=== PATIENT | female | born 1990 ===

== ENCOUNTER 2018-04-08 09:35 | Inpatient (IN) ==
[2018-04-08] MEDS: Sod Chloride 0.9% Inj 1,000 ML IV.CONT SCH (18:18)
--- NOTE | 2018-04-08 18:54 | P.HPIM ---
History of Present Illness Primary Care Physician: UNKNOWN Chief Complaint: Abdominal pain History of Present Illness: The patient is a 28-year-old female with a past medical history significant for recent and who is still breast- feeding who is presenting to the hospital with abdominal pain. The patient presented to the emergency department a few days ago with the same abdominal pain and left AGAINST MEDICAL ADVICE as she had to take care of her family. The patient stated that her pain was located in the top of her belly and seemed to begin after eating something at [employer]. She said she felt nauseous and self-induced vomiting and felt better after that. She then noticed that her urine became dark and she went to the emergency department. She says that she came back to the hospital this time because her urine is still dark and she has noticed her stools have been white in color. She says her pain has resolved. She said she had mild discomfort with breakfast this morning. She is wondering when she can go home. Review of Systems Review of Systems: all other systems reviewed are negative [facility] Medical History Medical History No significant medical problems (Acute) Surgical History Surgical History H/O: section (Acute) Family History Family History Other Cancer Diabetes Social History Social History Substance History: No History of Abuse Second Hand Smoke Exposure: No Smoking Status: Never smoker How Often Do You Have a Drink Containing Alcohol: Never Medications and Allergies Allergies Allergy/AdvReac Type Severity Reaction Status Date / Time No Known Allergies Allergy Unverified 04/08/18 14:06 Active Medications: Active Medications Sodium Chloride (Ns Inj) 1,000 mls @ 100 mls/hr IV.CONT .Q10H KIN Last Admin: 04/08/18 18:18 Dose: 100 mls/hr Piperacillin/Tazobactam/Dextrose (Zosyn 4.5 Gm Premix) 4.5 gm in 100 mls @ 200 mls/hr IV.SIG Q6H KIN Ondansetron HCl (Zofran Inj) 4 mg IV.PUSH Q8H PRN PRN Reason: NAUSEA Physical Exam Vital signs: Vital Signs 04/08/18 17:13 Temperature 97.8 F Pulse Rate 68 Respiratory Rate 18 Blood Pressure 147/89 H Pulse Oximetry 99 Intake & Output 04/07/18 04/08/18 04/08/18 18:59 06:59 18:59 Weight 223.9 kg Other: Weight On Admission 223.9 kg Narrative: General: NAD HEENT: NC, AT Lungs: CTAB. No W/R/R Cardiac: RRR. No M/R/G Abdomen: Soft, NT, ND, no guarding Extremities: No edema Neuro: No gross deficits Caprini VTE Risk Assessment Caprini VTE Risk Assessment: No/Low Risk (score <= 1) Caprini Risk Assessment Model: Point Value = 1 Point Value = 2 Point Value = 3 Point Value = 5 Age 41-60 Minor surgery BMI > 25 kg/m2 Swollen legs Varicose veins or History of unexplained or recurrent spontaneous Oral contraceptives or hormone replacement Sepsis (< 1 month) Serious lung disease, including pneumonia (< 1 month) Abnormal pulmonary function Acute myocardial infarction Congestive heart failure (< 1 month) History of inflammatory bowel disease Medical patient at bed rest Age 61-74 Arthroscopic surgery Major open surgery (> 45 min) Laparoscopic surgery (> 45 min) Malignancy Confined to bed (> 72 hours) Immobilizing plaster cast Central venous access Age >= 75 History of VTE Family history of VTE Factor V Leiden Prothrombin [id number] Lupus anticoagulant Anticardiolipin antibodies Elevated serum homocysteine Heparin-induced thrombocytopenia Other congenital or acquired thrombophilia Stroke (< 1 month) Elective arthroplasty Hip, pelvis, or leg fracture Acute spinal cord injury (< 1 month) Prophylaxis Regimen: Total Risk Factor Score Risk Level Prophylaxis Regimen 0-1 Low Early ambulation 2 Moderate Order ONE of the following: *Sequential Compression Device (SCD) *Heparin 5000 units SQ BID 3-4 Higher Order ONE of the following medications: *Heparin 5000 units SQ TID *Enoxaparin/Lovenox 40 mg SQ daily (WT < 150 kg, CrCl > 30 mL/min) *Enoxaparin/Lovenox 30 mg SQ daily (WT < 150 kg, CrCl > 10-29 mL/min) *Enoxaparin/Lovenox 30 mg SQ BID (WT < 150 kg, CrCl > 30 mL/min) AND/OR *Sequential Compression Device (SCD) 5 or more Highest Order ONE of the following medications: *Heparin 5000 units SQ TID (Preferred with Epidurals) *Enoxaparin/Lovenox 40 mg SQ daily (WT < 150 kg, CrCl > 30 mL/min) *Enoxaparin/Lovenox 30 mg SQ daily (WT < 150 kg, CrCl > 10-29 mL/min) *Enoxaparin/Lovenox 30 mg SQ BID (WT < 150 kg, CrCl > 30 mL/min) AND *Sequential Compression Device (SCD) Assessment and Plan Plan Elevated LFTs Ultrasound showed: Mobile echogenic gallstones; Cholecystitis should be excluded clinically. LFTs have improved since the last ED visit. Pain has also improved. Surgery contacted by the ED. -MRCP per surgery. -trend LFTs. -start Zosyn. -NPO with IVFs. -GI consult pending. Recent C section The pt is . -outpt follow-up. PPx: Ambulation H&P: Quality VTE Deep Vein Thrombosis/Pulmonary Embolism Present on Admission: No
[2018-04-08] MEDS: Piperacil/Tazo 4.5 GM Premix 4.5 GM/100 ML BAG IV.SIG SCH (21:08)
[2018-04-08] MEDS ORDERED: Morphine Inj 4 MG/ML Vial IV.PUSH PRN (22:58)
--- NOTE | 2018-04-08 23:02 | P.OP ---
- Preoperative Diagnosis (1) Acute appendicitis - Postoperative Diagnosis (1) Acute appendicitis Procedure: lap appy Anesthesia: GETA Surgeon: Valeriy Stout MD Pathology: other (appy) Operation and Findings: inflamed appendix
--- NOTE | 2018-04-08 23:52 | MB ---
cc: Valeriy Stout MD DATE: 04/08/2018 CHIEF COMPLAINT: Abdominal pain, cholelithiasis, elevated bilirubin. SPEECH LANGUAGE PATHOLOGIST ASSISTANT: Stephen Evans DO HISTORY OF PRESENT ILLNESS: The patient is a 28-year-old female who presents with a recent 2 months ago. The patient noted acute onset of abdominal pain. The patient states the abdominal pain started Tuesday and continued to get worse. She characterized the pain as pressure in the right upper quadrant. The patient had initial evaluation including ultrasound at [facility]. The patient was noted to have recommendations for further evaluation and workup. The patient was noted to have an elevated bilirubin at this time; however, the patient was unable to stay and evidently left AMA. She came back due to continued discomfort in the right upper quadrant abdominal area and states she wanted further evaluation. She came to the [facility] with ultrasound finding of multiple gallstones in the gallbladder along with a bilirubin of 3.3, AST and ALT of 142 and 564 respectively and alkaline phosphatase of 287. WBC was normal at 5.7. The patient was decided to transfer to [place] for further definitive surgical management. Surgery was consulted. On my exam, the patient states the pain is still persistent and significant in the right upper quadrant. She states other than Tuesday, she has never had a painful episodes like this prior. She does have associated pain with meals and prompted her to come to the Emergency Department for a current evaluation. She does note she is continuing breast feeding and had an otherwise normal delivery. PAST MEDICAL HISTORY: Hypertension. PAST SURGICAL HISTORY: . SOCIAL HISTORY: Denies smoking, ETOH or IVDA. ALLERGIES: NO KNOWN DRUG ALLERGIES. MEDICATIONS: See EMR. FAMILY HISTORY: Grandparents with the grandmother and grandfather with diabetes. REVIEW OF SYSTEMS: GENERAL: Denies fever or chills. HEENT: Denies eye pain or ear pain. NECK: Denies swelling or pain. LUNGS: Denies cough or wheeze. HEART: Denies palpitations or chest pain. ABDOMEN: Complains of abdominal pressure and pain. Denies vomiting. GENITOURINARY: Denies hematuria. Does complain of dark urine and guero-colored stools. EXTREMITIES: Denies any numbness or pain. PSYCHIATRIC: Appropriate mood. Appropriate insight. PHYSICAL EXAMINATION: GENERAL: No acute distress. VITAL SIGNS: Temperature 97.8, pulse 68, respiration 18, blood pressure 147/89, saturation 99%. HEENT: Pupils equal, round and reactive. No scleral icterus. NECK: Supple. Trachea midline. LUNGS: Clear to auscultation bilaterally. HEART: S1, S2 regular. ABDOMEN: Soft. Positive tenderness to palpation in the right upper quadrant. No rebound. No guarding. EXTREMITIES: Warm and well perfused. NEUROLOGIC: GCS of 15 and 5/5 motor in all extremities. PSYCHIATRIC: Appropriate mood. Appropriate judgment. LABORATORY AND DIAGNOSTIC DATA: WBC 5.7, hemoglobin 13.4, hematocrit 40.4, platelets 271. Sodium 143, potassium 3.8, chloride 110, CO2 is 27, BUN is 10, creatinine 0.9, AST 142, ALT 564. Total bilirubin is 3.3. Alkaline phosphatase is 287. Lipase is 91. Ultrasound reviewed by myself showing multiple gallstones within the gallbladder. ASSESSMENT: The patient is a 28-year-old female who presents with acute onset of pressure and abdominal pain, right upper quadrant, consistent with symptomatic cholelithiasis, concern for choledocholithiasis, total bilirubin elevation. The patient is recent . Complained of guero-colored stool and dark urine. PLAN: After full workup, the patient with the above-noted issues. At this point, I recommend a consultation with gastroenterology after obtaining a MRCP. Need to further delineate if the patient does indeed have choledocholithiasis. Discussed with the patient in detail regarding if choledocholithiasis, then gastroenterology would likely do ERCP for stone removal of common bile duct. However, if this is negative, the patient has likely passed a gallstone and we could consider proceeding with operative intervention. Regardless, discussed with the patient regarding likely need for surgical intervention regarding cholecystectomy as the patient does have multiple gallstones and evidence of concern for choledocholithiasis. The patient needs to be antibiotics, IV fluids, pain control. The patient can have clear liquid diet. Consideration for n.p.o. after midnight until, again, a scan has been obtained and gastroenterology has made decisions regarding further workup and evaluation. Repeat labs in a.m. Will continue to follow. Thank you for this consultation. MD OMAR Linder/carlos , 10:10 PM , 10:23 PM
[2018-04-09] MEDS: Piperacil/Tazo 4.5 GM Premix 4.5 GM/100 ML BAG IV.SIG SCH ×4 (03:15→20:51)
[2018-04-09] MEDS: Sod Chloride 0.9% Inj 1,000 ML IV.CONT SCH ×2 (03:16→15:26)
--- NOTE | 2018-04-09 08:44 | MR ---
EXAM DATE: 04/09/2018 8:32 AM EST AGE/SEX: 28 years / Female INDICATIONS: Cholelithiasis. Abdominal pain. Increased bilirubin. CLINICAL DATA: This is the patient's initial encounter. Patient reports that signs and symptoms have been present for 3 days and indicates a pain score of 4/10. MEDICAL/SURGICAL HISTORY: Hypertension. section. COMPARISON: DL, CT ABDOMEN & PELVIS W CONTRAST, 04/05/2018. . TECHNIQUE: Multiplanar, multisequence images of the abdomen were obtained without contrast including dedicated cholangiographic images. FINDINGS: Multiple small gallstones are evident. There are 2 filling defects identified in a prominent common d uct seen best on series 3 image 20. There is no intrahepatic biliary duct dilatation Pancreas appears normal Spleen and kidneys are unremarkable. CONCLUSION: 1. Multiple small gallstones present 2. Mildly prominent common duct with at least 2 filling defects evident suggesting choledocholithias is Electronically signed by: Israel Bhakta MD Board Certified Radiologist 04/09/2018 8:43 AM EST
[2018-04-09 08:46] LABS: Albumin 3.1 g/dL (3.4-5.0); Anion Gap 11 meq/L (5-15); Aspartate Aminotransferase 125 U/L (15-37); Blood Urea Nitrogen 10 mg/dL (7-18); Calcium 9.1 mg/dL (8.5-10.1); Carbon Dioxide 23.7 meq/L (21.0-32.0); Chloride 109 meq/L (98-107); Glomerular Filtration Rate 86 mL/min (>89); Glucose,Random 58 mg/dL (74-106); Potassium 3.7 meq/L (3.5-5.1); Sodium 144 meq/L (136-145)
[2018-04-09 08:47] LABS: Alanine Aminotransferase 489 U/L (10-53)
[2018-04-09 08:50] LABS: Alkaline Phosphatase 263 U/L (45-117); Total Protein 6.9 g/dL (6.4-8.2)
--- NOTE | 2018-04-09 11:55 | P.PNIM ---
Subjective Interval history: Patient seen and examined this morning. Status post MRCP. Afebrile vital signs stable. Reports that she is doing well at this time. Has no major complaints or issues. States that her symptoms are improving. She is hopeful to get out of here soon. Still awaiting final recommendations from gastroenterology and general surgery. Physical Exam Vital signs: Vital Signs 04/08/18 17:13 04/08/18 20:00 04/09/18 00:00 Temperature 97.8 F 97.3 F L 97.2 F L Pulse Rate 68 67 62 Respiratory Rate 18 16 18 Blood Pressure 147/89 H 155/83 H 141/77 H Pulse Oximetry 99 98 98 04/09/18 04:00 04/09/18 09:30 Temperature 97.4 F L 97.5 F L Pulse Rate 57 L 100 H Respiratory Rate 18 18 Blood Pressure 123/89 142/86 H Pulse Oximetry 98 100 Intake & Output 04/08/18 04/09/18 04/09/18 18:59 06:59 18:59 Intake Total 1196 / 1196 100 / 100 Balance 1196 / 1196 100 / 100 Weight 223.9 kg 101 kg Intake: IV 1196 / 1196 100 / 100 NS Inj 1,000 ML @ 100 mls/hr IV 996 / 996 .CONT .Q10H KIN Rx#:[id number] Zosyn 4.5 GM Premix 4.5 gm In 200 / 200 100 / 100 100 ml @ 200 mls/hr IV.SIG Q6H KIN Rx#:[id number] Other: # Voids 1 Date of Last Bowel Movement 04/08/18 04/08/18 04/08/18 Weight On Admission 223.9 kg Narrative: GEN: Well-developed, well-nourished patient. No acute distress. CV: Regular rate and rhythm without obvious murmurs LUNGS: Clear to auscultation bilaterally. Normal respiratory effort. No wheezes , rales, rhonchi. GI: Soft, nontender, nondistended. No palpable masses. Bowel sounds WNL. EXT: No edema. NEURO/PSYCH: Afocal. Awake, alert, and oriented x3. Appropriate insight and judgment. Results - Labs CBC & Chem 7: 04/09/18 05:53 Laboratory Results - last 24 hr 04/09/18 05:53 Sodium 144 Potassium 3.7 Chloride 109 H Carbon Dioxide 23.7 Anion Gap 11 BUN 10 Creatinine 0.80 Estimated GFR 86 L Random Glucose 58 L Calcium 9.1 Total Bilirubin 4.1 H AST 125 H ALT 489 H Alkaline Phosphatase 263 H Total Protein 6.9 Albumin 3.1 L - Imaging Impressions Cholangiopancreatography MRI 04/09/18 00:00 CONCLUSION: 1. Multiple small gallstones present 2. Mildly prominent common duct with at least 2 filling defects evident suggesting choledocholithiasis Assessment and Plan - Assessment (1) Choledocholithiasis Code(s): K80.50 - Calculus of bile duct without cholangitis or cholecystitis without obstruction Status: Acute - Plan This a 28-year-old female with choledocholithiasis 1. Choledocholithiasis -Status post MRCP showing choledocholithiasis -Pain is well controlled this time, continue pain medications as needed -No nausea vomiting at this time, continue antiemetics as needed -General surgery consulted, recommendations appreciated -Gastroenterology consulted, recommendations appreciated N.p.o. at this time for possible surgical procedure DVT prophylaxis with SCDs Monitor electrolytes Code Status: Full code Discharge Planning: Pending recommendations from gastroenterology and general surgery
--- NOTE | 2018-04-09 13:33 | P.CONGI ---
History of Present Illness Consult date: 04/09/18 Requesting physician: Mauro Arora Consult reason: choledocholithiasis Chief complaint: Possible gall bladder surgery History of Present Illness: 28-year-old female status post 2 months ago developed acute worsening right upper quadrant pain earlier this week. Ultrasound at [place] [facility] positive for gallstones. Elevated bilirubin of 3.3, AST 142, ALT 564 and alk phos 287. Patient initially declined further workup as she is still breast-feeding and wanted to be able to care for her infant. She return to the ER when pain persisted, she developed dark urine and pale colored stool. She reports nausea but no vomiting. Pain is worse after eating. Denies diarrhea or constipation no unexplained weight loss. MRCP was done this morning to evaluate suspected choledocholithiasis mildly prominent common bile duct was noted with at least 2 filling defects suggestive for choledocholithiasis. Bilirubin now elevated to 4.1, AST 125, ALT 489, alk phos 263. Surgery is following and has discussed with the patient the likely need for surgical intervention. We are consulted for consideration of ERCP for CBD stone removal prior to cholecystectomy. <Jeanna Raymundo - Last Filed: 04/09/18 13:34> PMFSH - History History Provided By: Patient - Medical History Medical History: Medical History (Last Reviewed 04/08/18 @ 18:52 by Stephen Evans DO) No significant medical problems - Surgical History Surgical History: Surgical History (Last Reviewed 04/08/18 @ 18:52 by Stephen Evans DO) H/O: section - Family History Family History: Family History (Last Reviewed 04/08/18 @ 18:52 by Stephen Evans DO) Other Cancer Diabetes - Tobacco History Second Hand Smoke Exposure: No Smoking Status: Never smoker - Alcohol History How Often Do You Have a Drink Containing Alcohol: Never - Substance Use History Substance History: No History of Abuse <Jeanna Raymundo - Last Filed: 04/09/18 13:34> - Medical History Medical History: Medical History (Last Reviewed 04/08/18 @ 18:52 by Stephen Evans DO) No significant medical problems - Surgical History Surgical History: Surgical History (Last Reviewed 04/08/18 @ 18:52 by Stephen Evans DO) H/O: section - Family History Family History: Family History (Last Reviewed 04/08/18 @ 18:52 by Stephen Evans DO) Other Cancer Diabetes <Cb Aviles E - Last Filed: 04/09/18 20:53> Medications and Allergies Active Medications: Active Medications Sodium Chloride (Ns Inj) 1,000 mls @ 100 mls/hr IV.CONT .Q10H KIN Last Admin: 04/09/18 03:16 Dose: 100 mls/hr Piperacillin/Tazobactam/Dextrose (Zosyn 4.5 Gm Premix) 4.5 gm in 100 mls @ 200 mls/hr IV.SIG Q6H KIN Last Infusion: 04/09/18 08:38 Dose: Infused Morphine Sulfate (Morphine Inj) 2 mg IV.PUSH Q3H PRN PRN Reason: pain > 3 Ondansetron HCl (Zofran Inj) 4 mg IV.PUSH Q8H PRN PRN Reason: NAUSEA <Jeanna Raymundo C - Last Filed: 04/09/18 13:34> Active Medications: Active Medications Sodium Chloride (Ns Inj) 1,000 mls @ 100 mls/hr IV.CONT .Q10H KIN Last Admin: 04/09/18 15:26 Dose: 100 mls/hr Piperacillin/Tazobactam/Dextrose (Zosyn 4.5 Gm Premix) 4.5 gm in 100 mls @ 200 mls/hr IV.SIG Q6H KIN Last Admin: 04/09/18 20:51 Dose: 200 mls/hr Morphine Sulfate (Morphine Inj) 2 mg IV.PUSH Q3H PRN PRN Reason: pain > 3 Ondansetron HCl (Zofran Inj) 4 mg IV.PUSH Q8H PRN PRN Reason: NAUSEA <bC Aviles E - Last Filed: 04/09/18 20:53> Allergies Allergy/AdvReac Type Severity Reaction Status Date / Time No Known Allergies Allergy Unverified 04/08/18 14:06 Exam Vital signs: Vital Signs 04/08/18 17:13 04/08/18 20:00 04/09/18 00:00 Temperature 97.8 F 97.3 F L 97.2 F L Pulse Rate 68 67 62 Respiratory Rate 18 16 18 Blood Pressure 147/89 H 155/83 H 141/77 H Pulse Oximetry 99 98 98 04/09/18 04:00 04/09/18 09:30 Temperature 97.4 F L 97.5 F L Pulse Rate 57 L 100 H Respiratory Rate 18 18 Blood Pressure 123/89 142/86 H Pulse Oximetry 98 100 Intake & Output 04/08/18 04/09/18 04/09/18 18:59 06:59 18:59 Intake Total 1196 / 1196 100 / 100 Balance 1196 / 1196 100 / 100 Weight 223.9 kg 101 kg Intake: IV 1196 / 1196 100 / 100 NS Inj 1,000 ML @ 100 mls/hr IV 996 / 996 .CONT .Q10H KIN Rx#:[id number] Zosyn 4.5 GM Premix 4.5 gm In 200 / 200 100 / 100 100 ml @ 200 mls/hr IV.SIG Q6H KIN Rx#:[id number] Other: # Voids 1 Date of Last Bowel Movement 04/08/18 04/08/18 04/08/18 Weight On Admission 223.9 kg <Jeanna Raymundo - Last Filed: 04/09/18 13:34> Vital signs: Vital Signs 04/09/18 00:00 04/09/18 04:00 04/09/18 09:30 Temperature 97.2 F L 97.4 F L 97.5 F L Pulse Rate 62 57 L 100 H Respiratory Rate 18 18 18 Blood Pressure 141/77 H 123/89 142/86 H Pulse Oximetry 98 98 100 04/09/18 12:00 04/09/18 16:00 Temperature 97.3 F L 97.5 F L Pulse Rate 84 69 Respiratory Rate 20 19 Blood Pressure 145/70 H 137/67 Pulse Oximetry 97 99 Intake & Output 04/09/18 04/09/18 04/10/18 06:59 18:59 06:59 Intake Total 1196 / 1196 1200 / 1200 Balance 1196 / 1196 1200 / 1200 Weight 101 kg Intake: IV 1196 / 1196 1200 / 1200 NS Inj 1,000 ML @ 100 mls/hr IV 996 / 996 1000 / 1000 .CONT .Q10H KIN Rx#:[id number] Zosyn 4.5 GM Premix 4.5 gm In 200 / 200 200 / 200 100 ml @ 200 mls/hr IV.SIG Q6H KIN Rx#:[id number] Other: # Voids 1 3 Date of Last Bowel Movement 04/08/18 04/08/18 <Cb Aviles - Last Filed: 04/09/18 20:53> Results - Labs CBC & Chem 7: 04/09/18 05:53 Labs: Laboratory Results - last 24 hr 04/09/18 05:53 Sodium 144 Potassium 3.7 Chloride 109 H Carbon Dioxide 23.7 Anion Gap 11 BUN 10 Creatinine 0.80 Estimated GFR 86 L Random Glucose 58 L Calcium 9.1 Total Bilirubin 4.1 H AST 125 H ALT 489 H Alkaline Phosphatase 263 H Total Protein 6.9 Albumin 3.1 L - Imaging Impressions Cholangiopancreatography MRI 04/09/18 00:00 CONCLUSION: 1. Multiple small gallstones present 2. Mildly prominent common duct with at least 2 filling defects evident suggesting choledocholithiasis <Jeanna Raymundo - Last Filed: 04/09/18 13:34> - Labs CBC & Chem 7: 04/09/18 05:53 Labs: Laboratory Results - last 24 hr 04/09/18 05:53 Sodium 144 Potassium 3.7 Chloride 109 H Carbon Dioxide 23.7 Anion Gap 11 BUN 10 Creatinine 0.80 Estimated GFR 86 L Random Glucose 58 L Calcium 9.1 Total Bilirubin 4.1 H AST 125 H ALT 489 H Alkaline Phosphatase 263 H Total Protein 6.9 Albumin 3.1 L - Imaging Impressions Cholangiopancreatography MRI 04/09/18 00:00 CONCLUSION: 1. Multiple small gallstones present 2. Mildly prominent common duct with at least 2 filling defects evident suggesting choledocholithiasis <Cb Aviles - Last Filed: 04/09/18 20:53> Assessment and Plan (1) Choledocholithiasis Status: Acute Code(s): K80.50 - Calculus of bile duct without cholangitis or cholecystitis without obstruction - Plan Symptomatic cholelithiasis with choledocholithiasis and total bilirubin elevation. 1. Continue antibiotics, IV fluids and pain control. 2. Clear liquid diet 3 n.p.o. after midnight 4. Plan for ERCP tomorrow. The patient has been seen by myself and Dr. Aviles and this note is written on his behalf Jeanna Raymundo PA-C [phone] - Attending Attestation Dr. Aviles <Jeanna Raymundo - Last Filed: 04/09/18 13:34> (1) Choledocholithiasis Status: Acute Code(s): K80.50 - Calculus of bile duct without cholangitis or cholecystitis without obstruction - Attending Attestation Patient seen and examined Agree with above Continue with current supportive care Monitor labs Plan for ERCP tomorrow <Cb Aviles E - Last Filed: 04/09/18 20:53>
--- NOTE | 2018-04-09 15:00 | P.PNGS ---
Subjective Patient reports: feels better Interval history: DAILY PROGRESS NOTE FOR SURGICAL ATTENDING, DR. LOPEZ WATTS Sitting up in bed breast-feeding her child Minimal lower abdominal discomfort She tells me she is planning having a procedure tomorrow to remove stones from her tube Physical Exam Vital signs: Vital Signs 04/08/18 17:13 04/08/18 20:00 04/09/18 00:00 Temperature 97.8 F 97.3 F L 97.2 F L Pulse Rate 68 67 62 Respiratory Rate 18 16 18 Blood Pressure 147/89 H 155/83 H 141/77 H Pulse Oximetry 99 98 98 04/09/18 04:00 04/09/18 09:30 04/09/18 12:00 Temperature 97.4 F L 97.5 F L 97.3 F L Pulse Rate 57 L 100 H 84 Respiratory Rate 18 18 20 Blood Pressure 123/89 142/86 H 145/70 H Pulse Oximetry 98 100 97 Intake & Output 04/08/18 04/09/18 04/09/18 18:59 06:59 18:59 Intake Total 1196 / 1196 100 / 100 Balance 1196 / 1196 100 / 100 Weight 223.9 kg 101 kg Intake: IV 1196 / 1196 100 / 100 NS Inj 1,000 ML @ 100 mls/hr IV 996 / 996 .CONT .Q10H [facility] Rx#:[id number] Zosyn 4.5 GM Premix 4.5 gm In 200 / 200 100 / 100 100 ml @ 200 mls/hr IV.SIG Q6H [facility] Rx#:[id number] Other: # Voids 1 Date of Last Bowel Movement 04/08/18 04/08/18 04/08/18 Weight On Admission 223.9 kg Results - Labs 04/09/18 05:53 Laboratory Results - last 24 hr 04/09/18 05:53 Sodium 144 Potassium 3.7 Chloride 109 H Carbon Dioxide 23.7 Anion Gap 11 BUN 10 Creatinine 0.80 Estimated GFR 86 L Random Glucose 58 L Calcium 9.1 Total Bilirubin 4.1 H AST 125 H ALT 489 H Alkaline Phosphatase 263 H Total Protein 6.9 Albumin 3.1 L - Imaging Imaging: ITS Impressions Cholangiopancreatography MRI 04/09/18 00:00 CONCLUSION: 1. Multiple small gallstones present 2. Mildly prominent common duct with at least 2 filling defects evident suggesting choledocholithiasis Additional studies: MRCP reviewed Assessment and Plan - Assessment (1) Choledocholithiasis Code(s): K80.50 - Calculus of bile duct without cholangitis or cholecystitis without obstruction Status: Acute (2) Gallstones Code(s): K80.20 - Calculus of gallbladder without cholecystitis without obstruction Status: Acute (3) Elevated liver enzymes Code(s): R74.8 - Abnormal levels of other serum enzymes Status: Acute - Plan 28-year-old female who is 2 months with gallstones and choledocholithiasis GI following planning ERCP tomorrow She wanted to know she can go home and then schedule laparoscopic cholecystectomy with Dr. Stout in the future I told her and her family to discuss with Dr. Stout after her ERCP if that is an option - Attending Attestation NOTE FOR SURGICAL ATTENDING, DR. LOPEZ WATTS I attest that I had a [id number] encounter with the patient on the same day, and personally performed and documented my assessment and findings in the medical record. The following services were provided during this hospital visit: Chart data review, vital sign assessments/reviewing monitor data Review of consultations notes if present. Medication orders/review and/or management Ordering and/or reviewing lab tests Ordering and/or interpreting/reviewing x-rays and/or diagnostic studies Care of the patient and discussion of the patient with the care team Documentation time To help prompt me to consider important information that might be impacting today's encounter and assessment, Information from prior notes written by myself or my colleagues may have been "brought forward/copy and pasted" into today's note.
[2018-04-09] MEDS ORDERED: Chlorhexidine Gluconate 2% 1 Pack (2 Cloths) TOPICAL ONE (22:05)
[2018-04-09] MEDS ORDERED: Sodium Chlor 0.9% Inj 500 ML IV.SIG SCH (23:00)
[2018-04-10] MEDS: Sod Chloride 0.9% Inj 1,000 ML IV.CONT SCH ×3 (01:03→22:29)
[2018-04-10] MEDS: Piperacil/Tazo 4.5 GM Premix 4.5 GM/100 ML BAG IV.SIG SCH ×4 (02:44→21:44)
[2018-04-10] MEDS ORDERED: Succinylcholine Inj 100 MG/5 ML Syringe IV.PUSH ONE (09:27)
[2018-04-10] MEDS ORDERED: Lidocaine PF 1% Inj 5 ML Syringe OTHER ONE (09:27)
[2018-04-10] MEDS ORDERED: Sugammadex Inj 200 MG/2 ML Vial IV.PUSH ONE (10:26)
--- NOTE | 2018-04-10 10:59 | GIPROC ---
[facility] [address] [facility]. [facility] [place], [address] ERCP PROCEDURE REPORT EXAM DATE: 04/10/2018 PATIENT NAME: Светлана Boyer MR #: [id number] BIRTHDATE: 1990 ATTENDING: Mo Yuan MD ORDER #: [id number] GEOTHERMAL SHEET METAL WORKER: Tri Westfall and Khadra Wayne STATUS: inpatient INDICATIONS: The patient is a 28 yr old female here for an ERCP due to GB ,CBD stones, abnormal abdominal CT, abdominal pain of suspected biliary origin, and abnormal liver function test PROCEDURE PERFORMED: ERCP, Level 3 MEDICATIONS: Per Anesthesia and None. CONSENT: The patient understands the risks and benefits of the procedure and understands that these risks include, but are not limited to: sedation, allergic reaction, infection, perforation and/or bleeding. Alternative means of evaluation and treatment include, among others: physical exam, x-rays, and/or surgical intervention. The patient elects to proceed with this endoscopic procedure. medical equipment was checked for proper function. Hand hygiene and appropriate measures for infection prevention was taken. After the risks, benefits and alternatives of the procedure were thoroughly explained, Informed was verified, confirmed and timeout was successfully executed by the treatment team. With the patient in left supine position, medications were administered intravenously.The Pentax [id number] was passed from the mouth into the esophagus and further advanced from the esophagus into the stomach. From stomach scope was directed to the second portion of the duodenum. Major papilla was enlarged, deformed.It aligned with the duodenoscope. The scope position was confirmed fluoroscopically. Rest of the findings/therapeutics are given below. The scope was then completely withdrawn from the patient and the procedure completed. The pulse, BP, and O2 saturation were monitored and documented by the physician and the nursing staff throughout the entire procedure. The patient was cared for as planned according to standard protocol. The patient was then discharged to recovery in stable condition and with appropriate post procedure care. The CBD wsa selectively cannulated with sphincterotome. GW advanced to IHD. Contrast injected. CBD,CHD dilted 13-15 mm. Bilary sphincterotomy done . 13-15 mmballoon used to extract 2 X 5 mm stone from CBD ADVERSE EVENT: There were no complications. IMPRESSIONS 1. CBD stone ,s/p removal with extraction balloon 2. s/p ES RECOMMENDATIONS: 1. Cholecystectomy 2. Antibiotics REPEAT EXAM: Return as needed for ERCP Mo Yuan MD eSigned: Mo Yuan MD 04/10/2018 10:58 AM cc: PATIENT NAME: Merlin Светлана Shelton MR#: [id number]
[2018-04-10] MEDS ORDERED: Iohexol 350 MG/ML 50 ML Vial (for Rad Diag) PO ONE (11:00)
[2018-04-10] MEDS ORDERED: Iohexol 350 MG/ML 50 ML Vial (for Rad Diag) ONE (11:04)
--- NOTE | 2018-04-10 11:53 | XR ---
EXAM DATE: 04/10/2018 11:40 AM EST AGE/SEX: 28 years / Female INDICATIONS: Respiratory status, possible infiltrate. CLINICAL DATA: This is the patient's initial encounter. Patient reports that signs and symptoms have been present for 1 day and indicates a pain score of 0/10. MEDICAL/SURGICAL HISTORY: . Hypertension. section. . COMPARISON: No prior exams available for comparison. FINDINGS: A single AP view of the chest demonstrates the lungs to be symmetrically aerated without evidence of mass, infiltrate or effusion. The cardiomediastinal contours are unremarkable. Osseous structures a re intact. CONCLUSION: Negative for acute process Electronically signed by: Israel Bhakta MD Board Certified Radiologist 04/10/2018 11:52 AM EST
--- NOTE | 2018-04-10 11:54 | FL ---
EXAM DATE: 04/10/2018 11:50 AM EST AGE/SEX: 28 years / Female INDICATIONS: Obstruction, removal on stones and balloon sweep. CLINICAL DATA: This is the patient's initial encounter. Patient reports that signs and symptoms have been present for 1 day and indicates a pain score of Nonresponsive. MEDICAL/SURGICAL HISTORY: Non-responsive. Non-responsive. COMPARISON: No prior exams available for comparison. FLUORO TIME: 305.3 IMAGE COUNT: 4 RADIATION DOSE: 286.263 DAP ; Patient motion FINDINGS: An ERCP was performed by the ordering physician. The images demonstrate a dilated common bile duct. See the report by the die cutter apprentice for a complete report. CONCLUSION: ERCP by die cutter apprentice as above. Electronically signed by: Oscar Dejesus MD Board Certified Radiologist 04/10/2018 11:53 AM EST
--- NOTE | 2018-04-10 16:15 | P.PNGS ---
Subjective Interval history: Resting in bed Physical Exam Vital signs: Vital Signs 04/09/18 19:18 04/10/18 00:16 04/10/18 03:52 Temperature 97.2 F L 98 F 97.3 F L Pulse Rate 75 81 66 Respiratory Rate 16 16 18 Blood Pressure 141/87 H 130/71 133/74 Pulse Oximetry 99 98 98 04/10/18 06:00 04/10/18 08:00 04/10/18 10:49 Temperature 97.3 F L 97.6 F 96.7 F L Pulse Rate 66 65 96 H Respiratory Rate 18 17 20 Blood Pressure 133/74 146/82 H 120/65 Pulse Oximetry 98 99 93 L 04/10/18 11:00 04/10/18 11:15 04/10/18 12:00 Temperature 97.4 F L 97.2 F L Pulse Rate 80 91 H 73 Respiratory Rate 16 25 H 17 Blood Pressure 117/72 118/72 141/78 H Pulse Oximetry 97 98 99 Intake & Output 04/09/18 04/10/18 04/10/18 18:59 06:59 18:59 Intake Total 1200 / 1200 1820 / 1820 2200 / 2200 Balance 1200 / 1200 1820 / 1820 2200 / 2200 Weight 102.4 kg Intake: IV 1200 / 1200 1100 / 1100 1200 / 1200 NS Inj 1,000 ML @ 100 mls/hr IV 1000 / 1000 900 / 900 1000 / 1000 .CONT .Q10H [facility] Rx#:[id number] Zosyn 4.5 GM Premix 4.5 gm In 200 / 200 200 / 200 200 / 200 100 ml @ 200 mls/hr IV.SIG Q6H [facility] Rx#:[id number] Oral 720 / 720 Anesthesia Amount 1000 / 1000 Other: # Voids 3 3 Date of Last Bowel Movement 04/08/18 04/10/18 04/09/18 # Bowel Movements 2 Narrative: Alert and awake Abd: soft; minimally tender Results - Labs 04/09/18 05:53 Laboratory Results - last 24 hr 04/09/18 05:53 Beta HCG, Quant Less than 1 - Imaging Imaging: ITS Impressions Cholangiopancreatography MRI 04/09/18 00:00 CONCLUSION: 1. Multiple small gallstones present 2. Mildly prominent common duct with at least 2 filling defects evident suggesting choledocholithiasis GI Procedure 04/10/18 00:00 CONCLUSION: ERCP by pin drafter operator as above. Chest X-Ray 04/10/18 10:51 CONCLUSION: Negative for acute process Assessment and Plan - Assessment (1) Choledocholithiasis Code(s): K80.50 - Calculus of bile duct without cholangitis or cholecystitis without obstruction Status: Acute Plan: 28 year old female with choledocholithiasis -s/p ERCP today -Plan for lap lam tomorrow -NPO after MN -Obtain consents -Procedure explained in detail -Dr. Saenz also at the bedside (2) Gallstones Code(s): K80.20 - Calculus of gallbladder without cholecystitis without obstruction Status: Acute (3) Elevated liver enzymes Code(s): R74.8 - Abnormal levels of other serum enzymes Status: Acute
--- NOTE | 2018-04-10 16:48 | P.PNIM ---
Subjective Interval history: Follow-up for choledocholithiasis. Patient is currently doing well. No nausea or vomiting. No fever or chills. She underwent ERCP with CBD stone status post removal with extraction balloon. GI recommended cholecystectomy. Physical Exam Vital signs: Vital Signs 04/09/18 19:18 04/10/18 00:16 04/10/18 03:52 Temperature 97.2 F L 98 F 97.3 F L Pulse Rate 75 81 66 Respiratory Rate 16 16 18 Blood Pressure 141/87 H 130/71 133/74 Pulse Oximetry 99 98 98 04/10/18 06:00 04/10/18 08:00 04/10/18 10:49 Temperature 97.3 F L 97.6 F 96.7 F L Pulse Rate 66 65 96 H Respiratory Rate 18 17 20 Blood Pressure 133/74 146/82 H 120/65 Pulse Oximetry 98 99 93 L 04/10/18 11:00 04/10/18 11:15 04/10/18 12:00 Temperature 97.4 F L 97.2 F L Pulse Rate 80 91 H 73 Respiratory Rate 16 25 H 17 Blood Pressure 117/72 118/72 141/78 H Pulse Oximetry 97 98 99 Intake & Output 04/09/18 04/10/18 04/10/18 18:59 06:59 18:59 Intake Total 1200 / 1200 1820 / 1820 2200 / 2200 Balance 1200 / 1200 1820 / 1820 2200 / 2200 Weight 102.4 kg Intake: IV 1200 / 1200 1100 / 1100 1200 / 1200 NS Inj 1,000 ML @ 100 mls/hr IV 1000 / 1000 900 / 900 1000 / 1000 .CONT .Q10H [facility] Rx#:[id number] Zosyn 4.5 GM Premix 4.5 gm In 200 / 200 200 / 200 200 / 200 100 ml @ 200 mls/hr IV.SIG Q6H [facility] Rx#:[id number] Oral 720 / 720 Anesthesia Amount 1000 / 1000 Other: # Voids 3 3 Date of Last Bowel Movement 04/08/18 04/10/18 04/09/18 # Bowel Movements 2 Narrative: GENERAL: Well-nourished, well-developed patient. SKIN: Warm and dry. HEAD: Normocephalic. EYES: No scleral icterus. No injection or drainage. NECK: Supple, trachea midline. No JVD or lymphadenopathy. CARDIOVASCULAR: Regular rate and rhythm without murmurs, gallops, or rubs. RESPIRATORY: Breath sounds equal bilaterally. No accessory muscle use. GASTROINTESTINAL: Abdomen soft, non-tender, nondistended. MUSCULOSKELETAL: No cyanosis, or edema. BACK: Nontender without obvious deformity. No CVA tenderness. Results Labs CBC & Chem 7: 04/09/18 05:53 Imaging Imaging: Impressions GI Procedure 04/10/18 00:00 CONCLUSION: ERCP by supervisor heavy equipment as above. Chest X-Ray 04/10/18 10:51 CONCLUSION: Negative for acute process Assessment and Plan (1) Choledocholithiasis: Code(s): K80.50 - Calculus of bile duct without cholangitis or cholecystitis without obstruction Status: Acute (2) Gallstones: Code(s): K80.20 - Calculus of gallbladder without cholecystitis without obstruction Status: Acute (3) Elevated liver enzymes: Code(s): R74.8 - Abnormal levels of other serum enzymes Status: Acute Plan The patient is a 28-year-old female with a past medical history significant for recent and who is still breast-feeding who is presented to the hospital on 04/08/2018 with abdominal pain. MRCP showed prominent CBD with at least 2 filling defects. Patient underwent ERCP on 04/10/2018. Choledocholithiasis Status post ERCP, removal with extraction balloon. GI recommended cholecystectomy and continued antibiotics General surgery evaluated patient and will schedule for laparoscopic cholecystectomy on 04/11/2018 Continue Zosyn IV. Full code. Ambulation. Discharge plan: Likely discharge on 04/12/2018. Progress Note: Quality VTE Deep Vein Thrombosis/Pulmonary Embolism Present on Admission: No
[2018-04-11] MEDS: Sod Chloride 0.9% Inj 1,000 ML IV.CONT SCH ×2 (04:49→15:10)
[2018-04-11] MEDS: Piperacil/Tazo 4.5 GM Premix 4.5 GM/100 ML BAG IV.SIG SCH ×3 (05:19→21:42)
[2018-04-11 05:20] LABS: Baso % (Auto) 0.5 % (0.0-2.0); Eos # (Auto) 0.3 th/mm3 (0.0-0.4); Eos % (Auto) 3.6 % (0.0-4.0); Hematocrit 37.7 % (35.0-46.0); Hemoglobin 12.5 gm/dL (11.6-15.3); Lymph # (Auto) 1.3 th/mm3 (1.0-4.8); Lymph % (Auto) 14.9 % (9.0-44.0); Mean Corpuscular Hemoglobin 28.3 pg (27.0-34.0); Mean Corpuscular Volume 85.8 fL (80.0-100.0); Mean Platelet Volume 9.7 fL (7.0-11.0); Mono # (Auto) 0.9 th/mm3 (0.0-0.9); Mono % (Auto) 9.6 % (0.0-8.0); Neut # (Auto) 6.4 th/mm3 (1.8-7.7); Neut % (Auto) 71.4 % (16.0-70.0); Platelet Count 240 th/mm3 (150-450); Red Cell Distribution Width 13.5 % (11.6-17.2); White Blood Count 8.9 th/mm3 (4.0-11.0)
[2018-04-11 05:45] LABS: Albumin 2.7 g/dL (3.4-5.0); Anion Gap 8 meq/L (5-15); Aspartate Aminotransferase 102 U/L (15-37); Blood Urea Nitrogen 8 mg/dL (7-18); Calcium 8.3 mg/dL (8.5-10.1); Carbon Dioxide 24.8 meq/L (21.0-32.0); Chloride 111 meq/L (98-107); Glomerular Filtration Rate Greater Than 89 mL/min (>89); Glucose,Random 86 mg/dL (74-106); Lipase 1077 U/L (73-393); Potassium 3.8 meq/L (3.5-5.1); Sodium 144 meq/L (136-145)
[2018-04-11 05:46] LABS: Alanine Aminotransferase 372 U/L (10-53)
[2018-04-11 05:49] LABS: Alkaline Phosphatase 216 U/L (45-117); Total Protein 6.1 g/dL (6.4-8.2)
[2018-04-11] MEDS ORDERED: Metoprolol Tartrate 25 MG Tablet PO ONE (06:08)
[2018-04-11] MEDS ORDERED: Chlorhexidine Gluconate 2% 1 Pack (2 Cloths) TOPICAL ONE (06:08)
[2018-04-11] MEDS ORDERED: Sodium Chlor 0.9% Inj 500 ML IV.SIG SCH (07:00)
[2018-04-11] MEDS ORDERED: Bupivacaine/Epinephrine Inj 0.25% 50 ML Vial ONE (10:49)
[2018-04-11] MEDS ORDERED: Sugammadex Inj 200 MG/2 ML Vial IV.PUSH ONE (11:30)
[2018-04-11] MEDS ORDERED: Lidocaine PF 1% Inj 5 ML Syringe OTHER ONE (11:38)
[2018-04-11] MEDS ORDERED: Ketorolac Inj 30 MG/ML (IVP) Vial IV.PUSH ONE (11:38)
--- NOTE | 2018-04-11 11:50 | P.OP ---
- Preoperative Diagnosis (1) Choledocholithiasis - Postoperative Diagnosis (1) Choledocholithiasis Procedure: lap lam Anesthesia: GETA Surgeon: Valeriy Stout MD Estimated blood loss (mL): 5 Pathology: other (gallbladder) Operation and Findings: distended gallbladder with stones
[2018-04-11] MEDS ORDERED: fentaNYL Citrate Inj 100 MCG/2 ML Ampul ONE (13:09)
--- NOTE | 2018-04-11 17:12 | MP ---
cc: Valeriy Stout MD DATE OF OPERATION: 04/11/2018 PREOPERATIVE DIAGNOSIS: Gallstone pancreatitis. POSTOPERATIVE DIAGNOSIS: Gallstone pancreatitis. PROCEDURE PERFORMED: Laparoscopic cholecystectomy. SURGEON: Dr. Valeriy Stout. DIRECTOR EXTERNAL COMMUNICATIONS: AVIS Hayes. ANESTHESIA: GETA. IV FLUIDS: See anesthesia sheet. ESTIMATED BLOOD LOSS: 5 mL DRAINS: None. COMPLICATIONS: None. WOUND CLASSIFICATION: Clean/contaminated. SPECIMENS: Gallbladder. FINDINGS: A somewhat distended gallbladder, multiple gallstones, a large cystic duct. INDICATION: The patient is a 28-year-old female 2 months, presents with acute onset of right upper quadrant abdominal pain. The patient had further workup, including ____ with initial finding of a bilirubin of 5.5. The patient ended up leaving the emergency department but returned several days later with recurrent findings and a total bilirubin of 3.5, multiple stones, along with a common bile duct stone on MRCP. Therefore, the patient underwent ERCP with stone removal. Decision was for laparoscopic cholecystectomy. Discussed with the patient in detail and understanding and agreed. DETAILS OF PROCEDURE: The patient was taken to the operating suite, placed in supine position, prepped and draped in the usual sterile fashion after induction of general endotracheal anesthesia. Brief timeout done, stating correct patient, procedure, surgical site. We were all in agreement. Attention was was first directed to the superior umbilicus where local anesthetic was injected and a stab nic incision was made with a 15 blade. Through the ____ Optiview, a 5 mm was used to enter the abdomen safely. On cursory inspection, no evidence of injury. Three other ports placed, including a 12 mm epigastric, followed by 5 mm right subcostal ports. The patient placed in reverse Trendelenburg to the left. The gallbladder was grasped and retracted cephalad. Gallbladder noted to be somewhat intrahepatic. The cystic duct and cystic artery were dissected out in the usual manner using hook electric Bovie cautery and a [place] grasper. Two clips were placed proximal on the cystic artery. This was ligated. The cystic duct was somewhat large, therefore, a 10 mm clip was placed, 2 proximally and 1 distally. A third clip was placed to traverse the duct completely. The gallbladder was removed from the gallbladder fossa with hook electric Bovie cautery. Gallbladder placed in an EndoCatch bag and removed from the abdomen. Noted to be hemostatic, the gallbladder fossa. A hook electric Bovie cautery were used to assist with ____. Next, the pneumoperitoneum was removed. The ports were removed. The epigastric port was closed with 0 Vicryl UR-6, followed by 4-0 Monocryl subcuticular sutures. Sterile dressings, including Mastisol and Steri-Strips were placed. The patient tolerated the procedure well. There were no intraoperative complications. All instruments counts were correct at the end of the procedure. The patient was extubated and taken stable to PACU. Valeriy Stout MD LSN/ll , 02:59 PM , 03:10 PM
--- NOTE | 2018-04-11 20:48 | P.PNGI ---
Subjective Interval history: Patient awake and alert Sitting up in bed Post laparoscopic cholecystectomy Physical Exam Vital signs: Vital Signs 04/11/18 00:00 04/11/18 04:00 04/11/18 08:00 Temperature 98.6 F 98.8 F 98.5 F Pulse Rate 97 H 85 71 Respiratory Rate 18 18 20 Blood Pressure 128/66 125/69 147/86 H Pulse Oximetry 98 97 97 04/11/18 13:05 04/11/18 13:15 04/11/18 13:30 Temperature 97.6 F Pulse Rate 87 77 61 Respiratory Rate 16 16 16 Blood Pressure 141/80 H 146/80 H 157/78 H Pulse Oximetry 98 98 96 04/11/18 16:00 Temperature 97.4 F L Pulse Rate 88 Respiratory Rate 19 Blood Pressure 146/69 H Pulse Oximetry 96 Intake & Output 04/11/18 04/11/18 04/12/18 06:59 18:59 06:59 Intake Total 1200 / 1200 2000 / 2000 Output Total 20 / 20 Balance 1200 / 1200 1979 Weight 103.9 kg Intake: IV 1200 / 1200 1200 / 1200 NS Inj 1,000 ML @ 100 mls/hr IV 1000 / 1000 1000 / 1000 .CONT .Q10H [facility] Rx#:[id number] Zosyn 4.5 GM Premix 4.5 gm In 200 / 200 100 / 100 100 ml @ 200 mls/hr IV.SIG Q8H [facility] Rx#:[id number] Flagyl 500 MG Inj 100 ML @ 0 100 / 100 mls/hr IV.SIG .STK-MED ONE Rx#: [id number] Oral 0 / 0 Anesthesia Amount 800 / 800 Output: Estimated Blood Loss 20 / 20 Other: # Voids 2 4 Date of Last Bowel Movement 04/09/18 03/31/18 # Bowel Movements 0 - Constitutional no acute distress, obese - Routine HEENT Exam Head: Present: normocephalic - Routine Neck Exam Present: supple - Routine Respiratory Exam Present: CTA bilaterally. Absent: accessory muscle use - Routine Cardiovascular Exam Present: RRR - Routine Abdominal Exam Present: soft, normoactive bowel sounds, tenderness, wound. Absent: distended, guarding, firm Comments: Puncture wounds post laparoscopic cholecystectomy intact with Steri-Strip dressings - Routine Extremities Exam Absent: edema - Routine Skin Exam Present: dry, warm - Routine Neurological Exam Present: alert, oriented X3 Results - Labs CBC & Chem 7: 04/11/18 04:25 04/11/18 04:25 Laboratory Results - last 24 hr 04/11/18 04/11/18 04:25 04:25 WBC 8.9 RBC 4.40 Hgb 12.5 Hct 37.7 MCV 85.8 MCH 28.3 MCHC 33.0 RDW 13.5 Plt Count 240 MPV 9.7 Neut % (Auto) 71.4 H Lymph % (Auto) 14.9 Cascade % (Auto) 9.6 H Eos % (Auto) 3.6 Baso % (Auto) 0.5 Neut # (Auto) 6.4 Lymph # (Auto) 1.3 Cascade # (Auto) 0.9 Eos # (Auto) 0.3 Baso # (Auto) 0.0 WBC Differential . Differential Comment Auto diff final Sodium 144 Potassium 3.8 Chloride 111 H Carbon Dioxide 24.8 Anion Gap 8 BUN 8 Creatinine 0.74 Estimated GFR Greater than 89 Random Glucose 86 Calcium 8.3 L D Total Bilirubin 1.9 H AST 102 H ALT 372 H Alkaline Phosphatase 216 H Total Protein 6.1 L D Albumin 2.7 L Lipase 1077 H Assessment and Plan (1) Choledocholithiasis Status: Acute Code(s): K80.50 - Calculus of bile duct without cholangitis or cholecystitis without obstruction - Plan Symptomatic cholelithiasis with choledocholithiasis and total bilirubin elevation. 04/11/2018 Post laparoscopic cholecystectomy WBC 8.9 hematocrit 37.7 hemoglobin 12.5 Total bilirubin 1.9 AST 102 ALT 372 alk phos 216 lipase 1077 all trending down Patient tolerating clear liquid diet without complaint of severe abdominal pain nausea or vomiting. Plan Diet as per general surgery Monitor labs Continue IV antibiotics Analgesics and antiemetics as per attending Supportive care GI will sign off at this time, please notify for any further assistance This patient was seen by myself and Dr. Yuan and this note is written on his behalf - Attending Attestation Dr. Yuan
--- NOTE | 2018-04-11 21:45 | P.PNIM ---
Subjective Interval history: Follow-up for choledocholithiasis. s/p Lap Jamila. Doing well. No fever, chills. Physical Exam Vital signs: Vital Signs 04/11/18 00:00 04/11/18 04:00 04/11/18 08:00 Temperature 98.6 F 98.8 F 98.5 F Pulse Rate 97 H 85 71 Respiratory Rate 18 18 20 Blood Pressure 128/66 125/69 147/86 H Pulse Oximetry 98 97 97 04/11/18 13:05 04/11/18 13:15 04/11/18 13:30 Temperature 97.6 F Pulse Rate 87 77 61 Respiratory Rate 16 16 16 Blood Pressure 141/80 H 146/80 H 157/78 H Pulse Oximetry 98 98 96 04/11/18 16:00 Temperature 97.4 F L Pulse Rate 88 Respiratory Rate 19 Blood Pressure 146/69 H Pulse Oximetry 96 Intake & Output 04/11/18 04/11/18 04/12/18 06:59 18:59 06:59 Intake Total 1200 / 1200 1999 / 1999 Output Total Balance 1200 / 1200 1979 Weight 103.9 kg Intake: IV 1200 / 1200 1200 / 1200 NS Inj 1,000 ML @ 100 mls/hr IV 1000 / 1000 1000 / 1000 .CONT .Q10H [facility] Rx#:[id number] Zosyn 4.5 GM Premix 4.5 gm In 200 / 200 100 / 100 100 ml @ 200 mls/hr IV.SIG Q8H [facility] Rx#:[id number] Flagyl 500 MG Inj 100 ML @ 0 100 / 100 mls/hr IV.SIG .STK-MED ONE Rx#: [id number] Oral 0 / 0 Anesthesia Amount 800 / 800 Output: Estimated Blood Loss Other: # Voids 2 4 Date of Last Bowel Movement 04/09/18 03/31/18 # Bowel Movements 0 Narrative: GENERAL: Well-nourished, well-developed patient. SKIN: Warm and dry. HEAD: Normocephalic. EYES: No scleral icterus. No injection or drainage. NECK: Supple, trachea midline. No JVD or lymphadenopathy. CARDIOVASCULAR: Regular rate and rhythm without murmurs, gallops, or rubs. RESPIRATORY: Breath sounds equal bilaterally. No accessory muscle use. GASTROINTESTINAL: Abdomen soft, non-tender, nondistended. s/p Lap Jamila MUSCULOSKELETAL: No cyanosis, or edema. BACK: Nontender without obvious deformity. No CVA tenderness. Results Labs CBC & Chem 7: 04/11/18 04:25 04/11/18 04:25 Assessment and Plan (1) Choledocholithiasis: Code(s): K80.50 - Calculus of bile duct without cholangitis or cholecystitis without obstruction Status: Acute (2) Gallstones: Code(s): K80.20 - Calculus of gallbladder without cholecystitis without obstruction Status: Acute (3) Elevated liver enzymes: Code(s): R74.8 - Abnormal levels of other serum enzymes Status: Acute Plan The patient is a 28-year-old female with a past medical history significant for recent and who is still breast-feeding who is presented to the hospital on 04/08/2018 with abdominal pain. MRCP showed prominent CBD with at least 2 filling defects. Patient underwent ERCP on 04/10/2018. Choledocholithiasis Status post ERCP, removal with extraction balloon. GI recommended cholecystectomy and continued antibiotics Gen Surgery following. S/P laparoscopic cholecystectomy on 04/11/2018 Continue Zosyn IV. Will d/c abx upon discharge in the AM. Full code. Ambulation. Discharge plan: Likely discharge on 04/12/2018. Progress Note: Quality VTE Deep Vein Thrombosis/Pulmonary Embolism Present on Admission: No
[2018-04-12] MEDS: Sod Chloride 0.9% Inj 1,000 ML IV.CONT SCH (04:52)
[2018-04-12] MEDS: Piperacil/Tazo 4.5 GM Premix 4.5 GM/100 ML BAG IV.SIG SCH ×2 (05:36→17:16)
--- NOTE | 2018-04-12 10:42 | P.PNIM ---
Subjective Interval history: patient feels great wanting to eat doing well, tolerated clear very well + flatus no nausea or vomting wanting to go home- she has a 2 months old baby at home- Physical Exam Vital signs: Vital Signs 04/11/18 13:05 04/11/18 13:15 04/11/18 13:30 Temperature 97.6 F Pulse Rate 87 77 61 Respiratory Rate 16 16 16 Blood Pressure 141/80 H 146/80 H 157/78 H Pulse Oximetry 98 98 96 04/11/18 16:00 04/11/18 20:00 04/12/18 00:00 Temperature 97.4 F L 98.3 F 98.5 F Pulse Rate 88 69 64 Respiratory Rate 19 18 18 Blood Pressure 146/69 H 139/91 H 140/82 Pulse Oximetry 96 97 98 04/12/18 04:00 04/12/18 08:00 Temperature 98 F 98.1 F Pulse Rate 71 89 Respiratory Rate 18 16 Blood Pressure 131/78 131/82 Pulse Oximetry 96 98 Intake & Output 04/11/18 04/12/18 04/12/18 18:59 06:59 18:59 Intake Total 1999 440 / 440 Output Total Balance 1979 440 / 440 Weight 104.3 kg Intake: IV 1200 / 1200 200 / 200 NS Inj 1,000 ML @ 100 mls/hr IV 1000 / 1000 .CONT .Q10H [facility] Rx#:[id number] Zosyn 4.5 GM Premix 4.5 gm In 100 / 100 200 / 200 100 ml @ 200 mls/hr IV.SIG Q8H [facility] Rx#:[id number] Flagyl 500 MG Inj 100 ML @ 0 100 / 100 mls/hr IV.SIG .STK-MED ONE Rx#: [id number] Oral 240 / 240 Anesthesia Amount 800 / 800 Output: Estimated Blood Loss Other: # Voids 4 3 Date of Last Bowel Movement 03/31/18 04/11/18 # Bowel Movements 0 Narrative: awake and alert, anicteric neck supple lungs-clear regular rhythm abdomen-soft nontender, sterile strips in place, good bowel sounds, no guarding extremites no edema neruo exma- unremarkable Results Labs CBC & Chem 7: 04/11/18 04:25 04/11/18 04:25 Assessment and Plan (1) Choledocholithiasis: Code(s): K80.50 - Calculus of bile duct without cholangitis or cholecystitis without obstruction Status: Acute (2) Gallstones: Code(s): K80.20 - Calculus of gallbladder without cholecystitis without obstruction Status: Acute (3) Elevated liver enzymes: Code(s): R74.8 - Abnormal levels of other serum enzymes Status: Acute Plan 28-year-old female with a past medical history significant for recent C- section and who is still breast-feeding who is presented to the hospital on 04/08 with abdominal pain. MRCP showed prominent CBD with at least 2 filling defects. Patient underwent ERCP on 04/10/2018. Choledocholithiasis S/ P laproscopic cholecystectomy 04/08 Status post ERCP, removal with extraction balloon. Gen Surgery following- ordered for repeat LFTs today- pending Continue Zosyn IV. Will d/c abx upon discharge in the AM. Full code. Ambulation. Discharge plan: Discharge today once cleared with surgery d/w her needs to ff up with PCP discussed with her to hold off on - if DC with pain meds and antibiotics - will defer to GS Progress Note: Quality VTE Deep Vein Thrombosis/Pulmonary Embolism Present on Admission: No
[2018-04-12 12:10] LABS: Albumin 2.7 g/dL (3.4-5.0); Anion Gap 7 meq/L (5-15); Aspartate Aminotransferase 185 U/L (15-37); Blood Urea Nitrogen 7 mg/dL (7-18); Calcium 8.1 mg/dL (8.5-10.1); Carbon Dioxide 26.7 meq/L (21.0-32.0); Chloride 108 meq/L (98-107); Glomerular Filtration Rate 89 mL/min (>89); Glucose,Random 98 mg/dL (74-106); Lipase 105 U/L (73-393); Potassium 3.3 meq/L (3.5-5.1); Sodium 142 meq/L (136-145)
[2018-04-12 12:11] LABS: Alanine Aminotransferase 515 U/L (10-53)
[2018-04-12 12:13] LABS: Alkaline Phosphatase 188 U/L (45-117); Total Protein 6.3 g/dL (6.4-8.2)
[2018-04-12 14:12] VITALS: BP 133/72; PULSE 84; RESP 17; TEMP 97.2; O2SAT 99
--- NOTE | 2018-04-12 15:35 | P.PNGS ---
Subjective Interval history: Resting in bed No issues Physical Exam Vital signs: Vital Signs 04/11/18 16:00 04/11/18 20:00 04/12/18 00:00 Temperature 97.4 F L 98.3 F 98.5 F Pulse Rate 88 69 64 Respiratory Rate 19 18 18 Blood Pressure 146/69 H 139/91 H 140/82 Pulse Oximetry 96 97 98 04/12/18 04:00 04/12/18 08:00 04/12/18 12:00 Temperature 98 F 98.1 F 97.2 F L Pulse Rate 71 89 84 Respiratory Rate 18 16 17 Blood Pressure 131/78 131/82 133/72 Pulse Oximetry 96 98 99 Intake & Output 04/11/18 04/12/18 04/12/18 18:59 06:59 18:59 Intake Total 1999 440 / 440 Output Total Balance 1979 440 / 440 Weight 104.3 kg Intake: IV 1200 / 1200 200 / 200 NS Inj 1,000 ML @ 100 mls/hr IV 1000 / 1000 .CONT .Q10H [facility] Rx#:[id number] Zosyn 4.5 GM Premix 4.5 gm In 100 / 100 200 / 200 100 ml @ 200 mls/hr IV.SIG Q8H [facility] Rx#:[id number] Flagyl 500 MG Inj 100 ML @ 0 100 / 100 mls/hr IV.SIG .STK-MED ONE Rx#: [id number] Oral 240 / 240 Anesthesia Amount 800 / 800 Output: Estimated Blood Loss 20 / 20 Other: # Voids 4 3 Date of Last Bowel Movement 03/31/18 04/11/18 04/12/18 # Bowel Movements 0 Narrative: Alert and awake Abd: soft; minimally tender; lap sites c/d/i Results - Labs 04/11/18 04:25 04/12/18 10:45 Laboratory Results - last 24 hr 04/12/18 10:45 Sodium 142 Potassium 3.3 L Chloride 108 H Carbon Dioxide 26.7 Anion Gap 7 BUN 7 Creatinine 0.78 Estimated GFR 89 Random Glucose 98 Calcium 8.1 L Total Bilirubin 1.7 H AST 185 H ALT 515 H Alkaline Phosphatase 188 H Total Protein 6.3 L Albumin 2.7 L Lipase 105 - Imaging Imaging: ITS Impressions Cholangiopancreatography MRI 04/09/18 00:00 CONCLUSION: 1. Multiple small gallstones present 2. Mildly prominent common duct with at least 2 filling defects evident suggesting choledocholithiasis GI Procedure 04/10/18 00:00 CONCLUSION: ERCP by incinerator operator as above. Chest X-Ray 04/10/18 10:51 CONCLUSION: Negative for acute process Assessment and Plan - Assessment (1) Choledocholithiasis Code(s): K80.50 - Calculus of bile duct without cholangitis or cholecystitis without obstruction Status: Acute Plan: 28 year old female with choledocholithiasis -POD1 lap lam -CMP shows improvement -Tolerated regular diet -GS clear for DC -Follow up in about a week (2) Gallstones Code(s): K80.20 - Calculus of gallbladder without cholecystitis without obstruction Status: Acute (3) Elevated liver enzymes Code(s): R74.8 - Abnormal levels of other serum enzymes Status: Acute
--- NOTE | 2018-04-12 17:11 | P.DS ---
DS: Providers Date of admission: 04/08/18 14:06 Primary care physician: UNKNOWN Consults: 04/08/18 14:09 Consult to Gastroenterology Routine Consulting Provider: Cb Aviles Reason for Consultation: elevated LFT's. Notified:: Service Spoke with:: jose Date Notified:: 04/08/18 Time Notified:: 17:16 Ordering Provider: TSERING 04/08/18 15:57 Consult to General Surgery Routine Consulting Provider: Valeriy Stout Reason for Consultation: cholelithiasis/elevated LFt's Notified:: Service Spoke with:: jose Date Notified:: 04/08/18 Time Notified:: 17:19 Ordering Provider: TSERING 04/11/18 12:53 HUB Only Consult Order Routine Consulting Provider: [facility],Insurance Brief History from admission: The patient is a 28-year-old female with a past medical history significant for recent and who is still breast- feeding who is presenting to the hospital with abdominal pain. The patient presented to the emergency department a few days ago with the same abdominal pain and left AGAINST MEDICAL ADVICE as she had to take care of her family. The patient stated that her pain was located in the top of her belly and seemed to begin after eating something at [employer]. She said she felt nauseous and self-induced vomiting and felt better after that. She then noticed that her urine became dark and she went to the emergency department. She says that she came back to the hospital this time because her urine is still dark and she has noticed her stools have been white in color. She says her pain has resolved. She said she had mild discomfort with breakfast this morning. She is wondering when she can go home. DS: Diagnosis Discharge Diagnosis (1) Choledocholithiasis: Status: Acute (2) Gallstones: Status: Acute (3) Elevated liver enzymes: Status: Acute DS: Summary 28-year-old female with a past medical history significant for recent C- section and who is still breast-feeding who is presented to the hospital on 04/08 with abdominal pain. MRCP showed prominent CBD with at least 2 filling defects. Patient underwent ERCP on 04/10/2018. Choledocholithiasis S/ P laproscopic cholecystectomy 04/08 Status post ERCP, removal with extraction balloon. Gen Surgery following- ordered for repeat LFTs today- improved Full code. Ambulation. Discharge plan: Discharge today - cleared by GS d/w her needs to ff up with PCP and GS in 1 week discussed with her to hold off on - - no scripts Time Spent with Patient Total time spent providing and/or coordinating discharge services: Quality: VTE Deep Vein Thrombosis/Pulmonary Embolism Present on Admission: No Exam Narrative Exam Narrative: anicteroic lungs-clear egular rhythm abdmen soft nontender extremites no edema Results Pending studies at discharge: Pending at discharge 04/11/18 16:48 Surgical [PTH] Routine Labs on day of discharge: Labs from last 24 hours 04/12/18 10:45 Sodium 142 Potassium 3.3 L Chloride 108 H Carbon Dioxide 26.7 Anion Gap 7 BUN 7 Creatinine 0.78 Estimated GFR 89 Random Glucose 98 Calcium 8.1 L Total Bilirubin 1.7 H AST 185 H ALT 515 H Alkaline Phosphatase 188 H Total Protein 6.3 L Albumin 2.7 L Lipase 105 Impressions ITS Impressions Cholangiopancreatography MRI 04/09/18 00:00 CONCLUSION: 1. Multiple small gallstones present 2. Mildly prominent common duct with at least 2 filling defects evident suggesting choledocholithiasis GI Procedure 04/10/18 00:00 CONCLUSION: ERCP by overnight associate as above. Chest X-Ray 04/10/18 10:51 CONCLUSION: Negative for acute process Discharge Plan Discharge Disposition Patient Disposition: 01 Discharge Home Discharge Condition Condition: Stable Discharge Order Discharge Orders: Discharge Order (Routine); Ordered 04/12/18 Ordered By: Tasha Raines Discharge Details Anticipated Discharge Date: 04/12/18 Physicians Team Primary Care Provider: UNKNOWN, Attending Provider: Tasha Raines Other Providers: Cb Aviles ; Valeriy Stout ; [employer],Insurance Rxs /Orders / Referrals /Forms Referrals: Valeriy Stout MD [Physician] - See Instructions (vff up in 1 week ) UNKNOWN, [Primary Care Provider] - None (dc ff up with Girish in 1 week) Discharge Instructions Patient Printed Instructions: Cholecystitis (DC), Gallstones (DC), Laparoscopic Cholecystectomy (DC), ERCP (Endoscopic Retrograde Cholangiopancreatography) (DC), Surgical Site Infections (DC), Acute Nausea and Vomiting (ED), Steristrips (ED) Additional Instructions: PRESCRIPTIONS PROVIDED AT DISCHARGE, TAKE ALL MEDICATIONS PRESCRIBED BY YOUR PHYSICIAN. KEEP ALL FOLLOW UP APPOINTMENTS INDICATED. CALL TO RESCHEDULE NECESSARY. KEEP STERISTRIPS INTACT. SIGNS AND SYMPTOMS OF SURGICAL SITE INFECTIONS INCLUDE: REDNESS, INCREASED PAIN/ DRAINAGE/WARMTH. Status ED Status: Admitted Observation Patient
== END 2018-04-12 18:09 | disposition home or self-care (01) | DRG 417 ==
LOC: N06 09:35 → NEDDLT 09:35 → OBSVTOIN 17:10
PROVIDERS: ADMIT Internal Medicine; ATTEND Internal Medicine
DX: K85.10 Biliary acute pancreatitis without necrosis or infection; K80.70 Calculus of gallbladder and bile duct without cholecystitis without obstruction; K82.8 Other specified diseases of gallbladder; I10 Essential (primary) hypertension; Z98.891 History of uterine scar from previous surgery
CPT/HCPCS: 71010; 71045; 74181; 74330; 76377; 76705; 80053; 83690; 84702; 85025; 88304; 94664; 99291; A4646; C1769; J0131; J0330; J1100; J1610; J1885; J2250; J2405; J2543; J2704; J3010; J7030; J7040; Q9950; Q9965; Q9967